=== PATIENT | female | born 1990 | race Caucasian/White ===

== ENCOUNTER → 2023-03-24 12:55 | Outpatient (BNVA) | payer OTHER, SELFPAY | PROVIDERS: PCP Nurse Practitioner Family; Visit Provider Surgery ==

== ENCOUNTER 2023-03-28 08:07 | Outpatient (AMB) | payer OTHER, SELFPAY ==
[2023-03-28 11:49] VITALS: BMI 46.3
--- NOTE | 2023-03-28 11:49 | A.OFFVIS_ITS ---
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 HPI Details Start time: 11.39am, End time: 12.26pm ?I spent 42 minutes speaking with the patient on the phone plus an additional 5 minutes reviewing and updating records for a total of 47 minutes HPI Comments History of Present Illness Details Previous weight loss efforts: Keto diet, exercise Wakes up: 6.30am, Sleeps: 8.30pm Breakfast: 7-8am (muffin, [employer] bar) Lunch: 1.30pm (peanut butter sandwich) Dinner: 6.30pm (rice and meat) Snacks: 4pm (chips) Exercise: has Gym membership Fluids: Coffee/Tea: none, soda: Coke zero or diet coke, juice: none, ETOH: none PFSH Medical History (Updated 03/28/23 @ 12:00 by Milad Lara MD) ADHD Morbid obesity Surgical History (Updated 03/28/23 @ 12:01 by Milad Lara MD) H/O bilateral breast reduction surgery History of appendectomy Assessment & Plan Assessment & Plan (1) Morbid obesity: Code(s): E66.01 - Morbid (severe) obesity due to excess calories Plan: 1.? Plan for lap sleeve gastrectomy. If diaphragmatic or ventral hernias are present at time of surgery, these will be repaired laparoscopically as well. Risks and complications were discussed in detail including possible conversion to an open procedure, anastomotic leak, bleeding requiring transfusion, small bowel obstruction, , DVT and pulmonary embolism, cardiac, or pulmonary complications, as care home complications such as anastomotic ulcer, insufficient weight loss and vitamin deficiencies. I emphasized the importance of close follow-up, adherence to instructions and good communication. 2. Nutritional counseling. Start with 2 protein shakes (HALF scoop EACH in 8oz low fat unsweetened almond milk) at 7am-9am and 10am-12pm, 2 [employer] protein bars at 1pm-3pm and 4pm-6pm, dinner at 7pm (8 forks of protein and 8 forks of salad/vegetables). So you do 2 protein shakes, 2 protein bars and one meal per day. Meal to include lean meat (beef, fish, pork, turkey, chicken), or luxembourger yogurt, or egg whites, or beans with a salad with olive oil and fruits (berries, pears, apples, kiwi). Avoid salt, breads, potatoes, rice, pasta, desserts. 3. Each shake would be drunk slowly, like coffee in a period of 2 hours. 4. Cut each bar in 4 pieces and eat each piece in 30min ?to make each bar last 2 hours. 5. I emphasized the importance of measuring accurately the food portion and measure it when serving the food in plate 6. The meal portions include 8 full-size forks of meat and 8 full-size forks of salad. You always eat the meat portion but you can replace up to 4 forks for salad/vegetables with rice, potatoes or pasta, or a fruit ?if you like. The less you do it the better weight loss will be. 7. One full-size fork is what it can be scooped on the fork without falling aside and not what can be bit with the fork. Use regular forks like those you find in a typical restaurant. 8.? Please send me weight measurements as soon as possible and then once a week. Always include your diet and exercise plan. 9. Start treadmill with an incline of 2.0 and speed of 3.0. Increase incline by 1 every 3 min to a max incline of 8.0, stay 3min at 8.0 and then return to 2.0 and repeat same steps until calorie goal is met. Goal is to burn 2000 calories per week on exercise, which means either 300 calories daily, or 400 calories 5 days per week, or 500 calories 4 days per week, or 650 calories 3 days per week. 10. The best choice would be to purchase a stationary bike at home that can track calories. Let me know if you do so I can give you an exercise plan. 11.?It is important of avoiding and for at least 18 months postoperatively and has been discussed at the infosession. 12. Goal is to lose at least 1.5-2lbs per week 13. Goal to lose 10% of your weight before surgery, which is about 24lbs. Ultimate weight goal: 217lbs before surgery 14. Please follow the diet plan exactly without any change. If you don't like something about the plan or you feel hungry you need to communicate with me so I can help you revise the plan. You should not change the plan yourself. Orders: Orders Insulin Today E66.01 - Morbid (severe) obesity due to excess calories, F41.9 - Anxiety disorder, unspecified, F90.9 - Attention-deficit hyperactivity disorder, unspecified type Hemoglobin A1c Today E66.01 - Morbid (severe) obesity due to excess calories, F41.9 - Anxiety disorder, unspecified, F90.9 - Attention-deficit hyperactivity disorder, unspecified type Lipid Panel Today E66.01 - Morbid (severe) obesity due to excess calories, F41.9 - Anxiety disorder, unspecified, F90.9 - Attention-deficit hyperactivity disorder, unspecified type Comprehensive Met. Panel Today E66.01 - Morbid (severe) obesity due to excess calories, F41.9 - Anxiety disorder, unspecified, F90.9 - Attention-deficit hyperactivity disorder, unspecified type Vitamin B12 and Folate Today E66.01 - Morbid (severe) obesity due to excess calories, F41.9 - Anxiety disorder, unspecified, F90.9 - Attention-deficit hyperactivity disorder, unspecified type Zinc Today E66.01 - Morbid (severe) obesity due to excess calories, F41.9 - Anxiety disorder, unspecified, F90.9 - Attention-deficit hyperactivity disorder, unspecified type Vitamin B1 Today E66.01 - Morbid (severe) obesity due to excess calories, F41.9 - Anxiety disorder, unspecified, F90.9 - Attention-deficit hyperactivity disorder, unspecified type Vitamin A Today E66.01 - Morbid (severe) obesity due to excess calories, F41.9 - Anxiety disorder, unspecified, F90.9 - Attention-deficit hyperactivity disorder, unspecified type US abdomen comp w elastography Today E66.01 - Morbid (severe) obesity due to excess calories, F41.9 - Anxiety disorder, unspecified, F90.9 - Attention- deficit hyperactivity disorder, unspecified type XR chest 2V Today E66.01 - Morbid (severe) obesity due to excess calories, F41.9 - Anxiety disorder, unspecified, F90.9 - Attention-deficit hyperactivity disorder, unspecified type FL upper GI w air Today E66.01 - Morbid (severe) obesity due to excess calories, F41.9 - Anxiety disorder, unspecified, F90.9 - Attention-deficit hyperactivity disorder, unspecified type H Pylori Breath Test Today E66.01 - Morbid (severe) obesity due to excess calories, F41.9 - Anxiety disorder, unspecified, F90.9 - Attention-deficit hyperactivity disorder, unspecified type Complete Blood Count Auto Diff Today E66.01 - Morbid (severe) obesity due to excess calories, F41.9 - Anxiety disorder, unspecified, F90.9 - Attention- deficit hyperactivity disorder, unspecified type IRON PROFILE Today E66.01 - Morbid (severe) obesity due to excess calories, F41.9 - Anxiety disorder, unspecified, F90.9 - Attention-deficit hyperactivity disorder, unspecified type C Reactive Protein Today E66.01 - Morbid (severe) obesity due to excess calories, F41.9 - Anxiety disorder, unspecified, F90.9 - Attention-deficit hyperactivity disorder, unspecified type TSH reflex Free T4 Today E66.01 - Morbid (severe) obesity due to excess calories, F41.9 - Anxiety disorder, unspecified, F90.9 - Attention-deficit hyperactivity disorder, unspecified type Ferritin Today E66.01 - Morbid (severe) obesity due to excess calories, F41.9 - Anxiety disorder, unspecified, F90.9 - Attention-deficit hyperactivity disorder, unspecified type Vitamin D 25-OH Total Today E66.01 - Morbid (severe) obesity due to excess calories, F41.9 - Anxiety disorder, unspecified, F90.9 - Attention-deficit hyperactivity disorder, unspecified type ECG 12 lead EKG Today E66.01 - Morbid (severe) obesity due to excess calories, F41.9 - Anxiety disorder, unspecified, F90.9 - Attention-deficit hyperactivity disorder, unspecified type Referrals Behavioral Health Referral E66.01 - Morbid (severe) obesity due to excess calories, F41.9 - Anxiety disorder, unspecified, F90.9 - Attention-deficit hyperactivity disorder, unspecified type Nutrition/Dietitian Referral E66.01 - Morbid (severe) obesity due to excess calories, F41.9 - Anxiety disorder, unspecified, F90.9 - Attention-deficit hyperactivity disorder, unspecified type Telehealth Telehealth Location of provider rendering services: practice address Location of patient: address on file Patient Identification confirmed using: Name, : Yes Telehealth method: voice only Patient verbally consented to treatment: Yes Patient verbally consented to billing insurance company: Yes Patient informed of any privacy concerns related to visit: Yes Minutes spent on Phone/Video with Pt.: 47 Coding Level of Care Code Tele New Pt Level 4 (10825) Diagnoses Morbid obesity E66.01 Time Spent (min) 47
== END 2023-03-28 12:27 | disposition home or self-care (01) ==
LOC: HO.HBS 08:07
PROVIDERS: PCP Nurse Practitioner Family; Visit Provider Surgery
DX: E66.01 Morbid (severe) obesity due to excess calories (principal); Z68.42 Body mass index [BMI] 45.0-49.9, adult
CPT/HCPCS: 99204

== ENCOUNTER → 2023-03-28 08:07 | Outpatient (BNVA) | payer OTHER, SELFPAY | PROVIDERS: PCP Nurse Practitioner Family; Visit Provider Surgery ==

== ENCOUNTER 2023-04-17 09:50 | Outpatient (REF) | payer OTHER, SELFPAY ==
--- NOTE | ~2023-04-17 | XR_ITS ---
EXAMINATION: XR CHEST CLINICAL INFORMATION: Morbid obesity, severe due to excess calories. COMPARISON: None available. TECHNIQUE: Two views of the chest were obtained. FINDINGS: Lung volumes are low. Mild degenerative changes in the thoracic spine. Heart size is normal. No pleural effusion. No focal consolidation to suggest pneumonia. XR/XR chest 2V IMPRESSION: No evidence of pneumonia.
--- NOTE | 2023-04-17 09:57 | ECG_ITS ---
Test Reason : E66.01 Blood Pressure : / mmHG Vent. Rate : 066 BPM Atrial Rate : 066 BPM P-R Int : 148 ms QRS Dur : 080 ms QT Int : 390 ms P-R-T Axes : 021 022 027 degrees QTc Int : 408 ms Normal sinus rhythm Normal ECG No previous ECGs available Referred By: Miald Lara Electronically Signed By:GIANNA ULLOA
[2023-04-17 10:07] LABS: MANUAL DIFF FLAG NO
[2023-04-17 10:11] LABS: Basophils Percent Auto 0.3 % (0-2); Eosinophils Absolute Auto 0.2 X10*3/uL (0.0-0.4); Eosinophils Percent Auto 2.1 % (0-4); Hematocrit 44.3 % (37.0-47.0); Hemoglobin 14.1 g/dl (12.0-16.0); Imm Gran Abs Auto 0.03 X10*3/uL (0.00-0.03); Imm Gran Pct Auto 0.3 % (0.0-0.4); Lymphocytes Absolute Auto 2.7 X10*3/uL (1.2-4.9); Lymphocytes Percent Auto 28.3 % (20-40); Mean Corpuscular HGB Conc 31.8 g/dl (31.0-35.0); Mean Corpuscular Hemoglobin 28.7 pg (27.0-33.0); Mean Corpuscular Volume 90.2 fL (80.0-98.0); Monocytes Absolute Auto 0.5 X10*3/uL (0.1-1.2); Monocytes Percent Auto 5.2 % (2-11); Neutrophils Absolute Auto 6.1 x10*3/uL (2.0-8.3); Neutrophils Percent Auto 63.8 % (45-73); Platelet Count 293 X10*3/uL (160-400); Red Blood Count 4.91 X10*6/uL (4.20-5.50); Red Cell Distribution Width 13.6 % (11.0-16.0); White Blood Count 9.6 X10*3/uL (4.8-10.8)
[2023-04-17 10:49] LABS: Estimated Average Glucose 94 mg/dL; Hemoglobin A1c % 4.9 % (<6.0)
[2023-04-17 11:34] LABS: Alanine Aminotransferase 14 U/L (0-31); Albumin Level 4.4 g/dL (3.5-5.0); Alkaline Phosphatase 115 U/L (39-117); Anion Gap 13 (12-20); Aspartate Amino Transferase 11 U/L (5-31); Bilirubin Total 0.3 mg/dL (0.0-1.0); Blood Urea Nitrogen 15 mg/dL (9-16); C Reactive Protein 2.54 mg/dL (< or = 0.50); Calcium 9.6 mg/dL (8.4-10.2); Carbon Dioxide 24 mmol/L (22-29); Chloride 107 mmol/L (96-108); Cholesterol 228 mg/dL (<200); Estimated Glomerular Filt Rate > 60; Glucose Random 90 mg/dL (60-115); HDL Cholesterol 36 mg/dL (>40); Iron 55 mcg/dL (30-160); LDL Cholesterol Calculated 160 mg/dL (<100); Percent Iron Saturation 19 % (15-50); Potassium 4.3 mmol/L (3.3-5.1); Sodium 140 mmol/L (135-145); Total Iron Binding Capacity 283 mcg/dL (228-428); Total Protein 7.9 g/dL (6.5-8.0); Triglycerides 160 mg/dL (<150); Unsaturated Iron Binding 228 ug/dL
[2023-04-17 11:49] LABS: Ferritin 53 ng/mL (10-122); Insulin 12 uU/mL (2-29); TSH reflex Free T4 1.22 uIU/mL (0.32-4.0); Vitamin D 25-OH Total 22.9 ng/mL (>30)
[2023-04-17 11:57] LABS: Folate 9.1 ng/mL (> or = 4.0); Vitamin B12 296 pg/mL (200-900)
[2023-04-20 05:44] LABS: Zinc 80 mcg/dL (60-130)
[2023-04-20 18:18] LABS: Vitamin A 37 mcg/dL (38-98)
[2023-04-21 15:38] LABS: Vitamin B1 14 nmol/L (8-30)
== END 2023-04-17 09:51 | disposition home or self-care (01) ==
LOC: HO.XRAY 09:50
PROVIDERS: Visit Provider Surgery
DX: E66.01 Morbid (severe) obesity due to excess calories (principal); F90.9 Attention-deficit hyperactivity disorder, unspecified type; F41.9 Anxiety disorder, unspecified
CPT/HCPCS: 36415; 71046; 80053; 80061; 82306; 82607; 82728; 82746; 83036; 83525; 83540; 84425; 84443; 84590; 84630; 85025; 86140; 93005

== ENCOUNTER → 2023-04-17 09:57 | Outpatient (BNV) | payer OTHER, SELFPAY | PROVIDERS: Visit Provider Internal Medicine | DX: E66.01 Morbid (severe) obesity due to excess calories (principal) | CPT/HCPCS: 93010 ==

== ENCOUNTER 2023-04-21 08:07 | Outpatient (AMB) | payer OTHER, SELFPAY ==
--- NOTE | 2023-04-21 09:02 | MHC.OFFVISWM ---
Intake VS Expanded 04/21/23 11:31 Height 5 ft 0.5 in Weight 245 lb 6 oz BMI 47.1 Body Fat % 63.7 Body Fat Mass 156.4 Fat Free Mass 89.2 Visceral Fat Rating 29 Body Water % 24.9 Body Water Mass 61.1 Basal Metabolic Rate/Score 1,252 Intake Visit Reasons: TV Follow Up SWL - 1ST Allergies aspirin Adverse Reaction (Intermediate, Verified 03/28/23 11:54) Diarrhea HPI TV Follow Up SWL - 1ST HPI Details Start time: 11.08am, End time: 11.38am ?I spent 25 minutes speaking with the patient on the phone plus an additional 5 minutes reviewing and updating records for a total of 30 minutes HPI Comments History of Present Illness Details Is doing 2 [employer] protein shakes (1 scoop in 8oz almond milk), 2 [employer] protein bars and one meal (4 forks of protein and 4 forks of salad or vegetables) Exercise: is doing stationary bike PFSH Medical History (Updated 04/21/23 @ 11:21 by Milad Lara MD) ADHD Morbid obesity Surgical History (Updated 03/28/23 @ 12:01 by Milad Lara MD) H/O bilateral breast reduction surgery History of appendectomy Assessment & Plan Assessment & Plan (1) Morbid obesity: Code(s): E66.01 - Morbid (severe) obesity due to excess calories Plan: 1. Continue same nutritional plan of 2 [employer] protein shakes (1 scoop in 8oz almond milk), 2 [employer] protein bars and one meal (EIGHT forks of protein and EIGHT forks of salad or vegetables) 2. The portion of your meal is 8 forks of protein and 8 forks of salad/vegetables or 4 forks of salad and 4 forks or rice, potatoes or pasta. 3. Exercise: continue the stationary bike daily and track the calories from the smart watch and burn 400 calories per work-out 4. Continue to send me weight measurements weekly on Mondays Medications: New vitamin A palmitate 10,000 units PO DAILY 30 caps 0RF E50.9 - Vitamin A deficiency, unspecified Telehealth Telehealth Location of provider rendering services: practice address Location of patient: address on file Patient Identification confirmed using: Name, : Yes Telehealth method: voice only Patient verbally consented to treatment: Yes Patient verbally consented to billing insurance company: Yes Patient informed of any privacy concerns related to visit: Yes Minutes spent on Phone/Video with Pt.: 30 Coding Level of Care Code Tele Est Pt Level 4 (86200) Diagnoses Morbid obesity E66.01 Time Spent (min) 30
[2023-04-21 11:31] VITALS: BMI 47.1
== END 2023-04-21 11:39 | disposition home or self-care (01) ==
LOC: HO.HBS 08:07
PROVIDERS: PCP Nurse Practitioner Family; Visit Provider Surgery
DX: E66.01 Morbid (severe) obesity due to excess calories (principal)
CPT/HCPCS: 99214

== ENCOUNTER → 2023-04-21 08:07 | Outpatient (BNVA) | payer OTHER, SELFPAY | PROVIDERS: PCP Nurse Practitioner Family; Visit Provider Surgery ==

== ENCOUNTER 2023-04-26 09:33 | Day surgery (SDC) | payer OTHER, SELFPAY ==
--- NOTE | 2023-04-24 12:25 | HO.ANESPROP2 ---
Documented by User: Karina Brady NP 04/24/23 12:26 HPI - Anesthesia Eval Consult details Narrative: 32yo F for Upper Endoscopy PMFSH Active Problems Active Problems: All Active Problems (Updated 04/21/23 @ 11:21 by Milad Lara MD) Vitamin A deficiency (Acute) Vitamin B12 deficiency (Acute) Vitamin D deficiency (Acute) Anxiety (Acute) ADHD (Acute) Morbid obesity (Acute) Past Medical History Medical History ADHD Morbid obesity Surgical History Surgical History H/O bilateral breast reduction surgery History of appendectomy Social History Social History Patient Tobacco Use Status: Former Tobacco user Quit Date: 1.5 mos ago Meds Allergies Allergy/AdvReac Type Severity Reaction Status Date / Time aspirin AdvReac Intermediate Diarrhea Verified 04/26/23 12:53 Home Medications Medication Instructions Recorded Confirmed Last Taken Type dextroamphetamine-amphetamine ER 1 cap PO QAM 03/24/23 04/26/23 04/17/23 History 30 mg 24hr capsule,extend release (Adderall XR) Exam Pertinent Lab Results Pertinent Lab Results: Laboratory Tests 04/17/23 10:05 WBC 9.6 Hgb 14.1 Hct 44.3 Plt Count 293 Sodium 140 Potassium 4.3 Chloride 107 Carbon Dioxide 24 BUN 15 Creatinine 0.72 Narrative Narrative: EKG Vent. Rate : 066 BPM Atrial Rate : 066 BPM P-R Int : 148 ms QRS Dur : 080 ms QT Int : 390 ms P-R-T Axes : 021 022 027 degrees QTc Int : 408 ms Normal sinus rhythm Normal ECG No previous ECGs available Assessment and Plan Assessment Anesthesia Assessment: Chart Reviewed Documented by User: Wanda Husain MD 04/26/23 14:51 PMFSH Active Problems Active Problems: All Active Problems (Updated 04/26/23 @ 12:57 by Wanda Husain MD) Vitamin A deficiency (Acute) Vitamin B12 deficiency (Acute) Vitamin D deficiency (Acute) Anxiety (Acute) ADHD (Acute) Morbid obesity (Acute) BMI 48 Former smoker. Quit 1.5 months ago Past Medical History Medical History ADHD Morbid obesity Family History Family history of problems with anesthesia: No Surgical History Surgical History H/O bilateral breast reduction surgery History of appendectomy History of Problems with Anesthesia: No Social History Social History Patient Tobacco Use Status: Former Tobacco user Quit Date: 1.5 mos ago Meds Allergies Allergy/AdvReac Type Severity Reaction Status Date / Time aspirin AdvReac Intermediate Diarrhea Verified 04/26/23 12:53 Home Medications Medication Instructions Recorded Confirmed Last Taken Type dextroamphetamine-amphetamine ER 1 cap PO QAM 03/24/23 04/26/23 04/17/23 History 30 mg 24hr capsule,extend release (Adderall XR) Exam Height,Weight and Vital Signs: Height 5 ft Weight 111.584 kg Vital Signs Temp Pulse Resp BP Pulse Ox O2 Del Method 98.1 F 71 16 97/49 L 98 Room Air 04/26/23 13:21 04/26/23 13:21 04/26/23 13:21 04/26/23 13:21 04/26/23 13:21 04/26/23 13:21 Pertinent Lab Results Pertinent Lab Results: Laboratory Tests 04/17/23 10:05 WBC 9.6 Hgb 14.1 Hct 44.3 Plt Count 293 Sodium 140 Potassium 4.3 Chloride 107 Carbon Dioxide 24 BUN 15 Creatinine 0.72 Lab Results 04/26/23 Range/Units 12:55 Urine Test NEGATIVE (NEGATIVE) Airway Mallampati Class: II TM Dist: >3cm Neck ROM: Full Loose/Missing/Broken Teeth: No (Denies broken, loose, missing teeth) Heart: RRR Lungs: CTAB Assessment and Plan Assessment Anesthesia Assessment: Anesthesia Plan Discussed and Chart Reviewed Final Anesthetic Review Family History of Problems with Anesthesia: No History of Problems with Anesthesia: No NPO: Yes ASA Class: III Final Preanesthetic Review: No Changes in Pt Med Stat, Meds/Allgs Chart Reviewed, Consent Obtained/Reviewed and Anes Risks/Benef Reviewed Patient Risk: Intermediate Procedure Risk: Low Assessment/Block/Sedation in SS: Assess/Block/Sedation-SS Anesthetic Plan Anesthetic Plan: GA, MAC: and TIVA Disposition: Standard PACU
[2023-04-26] VITALS (7 sets, daily range): BP systolic 97–116; BP diastolic 47–80; PULSE 70–88; RESP 14–16; TEMP 36.1–36.7; O2SAT 94–100; BMI 48.0
[2023-04-26 13:04] LABS: UPreg QC Valid YES; Urine Pregnancy NEGATIVE (NEGATIVE)
--- NOTE | 2023-04-26 13:07 | MHC.SHP ---
Pre-Procedural Eval Section A - 24 Hr Update-Section A only Date of Service: 04/26/23 The patient is an INPATIENT: No The patient has been examined within 24 hours of the surgical procedure. The History & Physical has been completed within 30 days and I have reviewed it.: No Section B - Complete if H&P > 30 days Chief Complaint: Morbid (severe) obesity due to excess calories Relevant Family History (Specify if Yes): No Relevant Social History: None Present Medications: None Medical History: No relevant PMH History of Previous Operations: No relevant previous surgery Allergies: Allergies Allergy/AdvReac Type Severity Reaction Status Date / Time aspirin AdvReac Intermediate Diarrhea Verified 04/26/23 12:53 Review of Systems Sugical H&P ROS: Negative: Constitution, Cardiovascular, Respiratory, Neurological, Psychiatric, Hem-Onc, Allergic/Immunologic, Gastrointestinal, Genitourinary, Musculoskeletal, Integumentary, Endocrine and Eyes/Ears/Nose/Throat Exam Surgical H&P Exam: Normal: HEENT, Normal: Heart, Normal: Lungs, Normal: Extremities, Normal: Abdomen, Normal: Skin and Normal: Neurological Plan Diagnosis/Plan: Unchanged (Plan for EGD. Risks of bleeding and perforation were discussed with the patient and she is in agreement with the plan.) I have reviewed the history and physical and performed a pertinent physical examination on my patient. No changes have occurred unless specified. Time Spent With Patient Time: Total time managing care of this patient today ____ minutes.
--- NOTE | 2023-04-26 13:09 | P.BOP_ITS ---
Brief Operative Note Date of Service: 04/26/23 Pre-op diagnosis: Morbid obesity Post-op diagnosis: same Procedure: PROCEDURE DATE: 04/26/2023 PREOPERATIVE DIAGNOSIS: Morbid obesity POSTOPERATIVE DIAGNOSIS: ?Same as above. 1) Normal endoscopy PROCEDURE: [id number]-ogmyioatcxyf with biopsies Surgeon: Lukas Lara M.D.. Ph.D. Manager Environmental: None ? Anesthesia: IV sedation Estimated blood loss: ?Minimal FINDINGS AND PROCEDURE: ? OPERATIVE INDICATIONS: ?The patient is a 33 year old female known to me who is interested in bariatric surgery. I recommended an upper endoscopy to evaluate the stomach's anatomy in preparation for bariatric surgery. Risks and complications of the surgery were discussed with the patient in advance particularly the possibility of perforation or bleeding that may require surgical intervention. The patient understood the risks and was in agreement with the plan. ? PROCEDURE: After informed consent was obtained by the patient, the patient was ?transferred to the Operating Room and was placed in the supine position.? After successful induction of IV sedation, a mouth block was inserted and the patient was placed in the left lateral decubitus position. An upper endoscopy was performed next, the oropharynx and esophagus appeared within the normal limits. There was no hiatal hernia. The z-line was smooth. Two biopsies were obtained from the distal esophagus 2-3 cm proximal to the GE junction and two additional biopsies from the GE junction. The stomach was entered and it appeared to be of normal size. There was no gastritis. There was no stricture or ulcer. Biopsies were obtained from the proximal sleeve as well as the distal antrum. No significant bleeding was noted from any of the biopsy sites. The scope was then advanced into the duodenum which appeared to be normal as well. At that point the duodenum ?and the sleeve were decompressed and the scope was withdrawn from the patient's mouth. The patient extubated and was transferred in stable condition to the Recovery Room for further care. I was present and performed all steps of the procedure. There were no residents to assist with this case. López Lara M.D., Ph.D. Surgeon: Milad Lara MD Anesthesia: MAC Was an Manager Environmental used for this Procedure?: No Estimated blood loss (mL): 0 IV fluids (mL): 400 Urine output (mL): 0 (No Gloria to record output) Pathology: other (1) antrum x1, 2) gastric fundus x1, 3) GE junction x2, 4) distal esophagus x2)
[2023-04-26] MEDS: Lactated Ringers 1,000 ML 80 ML IVCONT (13:50)
== END 2023-04-26 15:38 | disposition home or self-care (01) ==
PROVIDERS: Nurse Practitioner; PCP Nurse Practitioner Family; Visit Provider Surgery
PROC: 0DJ08ZZ Inspection of Upper Intestinal Tract, Via Natural or Artificial Opening Endoscopic (ICD-10-PCS; CPT 43235; principal; 2023-04-26 13:30)
DX: E66.01 Morbid (severe) obesity due to excess calories (principal); Z68.42 Body mass index [BMI] 45.0-49.9, adult; E50.9 Vitamin A deficiency, unspecified; F90.9 Attention-deficit hyperactivity disorder, unspecified type; Z88.8 Allergy status to other drugs, medicaments and biological substances; Z98.890 Other specified postprocedural states
CPT/HCPCS: 43239; 81025; 88305; 88313; 88342; J2250; J2704

== ENCOUNTER → 2023-04-26 09:33 | Outpatient (BNV) | payer OTHER, SELFPAY | PROVIDERS: PCP Nurse Practitioner Family; Visit Provider Surgery | DX: E66.01 Morbid (severe) obesity due to excess calories (principal); Z68.42 Body mass index [BMI] 45.0-49.9, adult | CPT/HCPCS: 43239 ==

== ENCOUNTER 2023-04-27 09:39 | Outpatient (REF) | payer OTHER, SELFPAY ==
--- NOTE | ~2023-04-27 | US_ITS ---
EXAMINATION: US COMPLETE ABDOMEN WITH LIVER ELASTOGRAPHY CLINICAL INFORMATION: Obesity. COMPARISON: None available. TECHNIQUE: Real-time imaging of the abdominal viscera. Noninvasive ultrasound liver fibrosis assessment is performed using Awilda ElastPQ point quantification shear wave elastography (2D-SWE) with a C5-2 MHz transducer. Multiple elastography samples are obtained. FINDINGS: PANCREAS: Head and body appear unremarkable. Tail not visualized. ABDOMINAL AORTA: The proximal, middle, and distal aortic segments appear unremarkable in caliber. INFERIOR VENA CAVA: Visualized portions appear unremarkable. LIVER: The liver demonstrates normal size, contour and echogenicity. No focal lesion or intrahepatic biliary duct dilatation. The right lobe measures 15.5 cm in length. The left lobe measures 7.2 cm in length. Portal flow is towards the liver (hepatopetal). Shear wave liver elastography median stiffness is 1.33 m/s (reference: normal median stiffness is 1.3 m/s or less). IQR/median stiffness to assess sampling precision is 0.27 (reference: good quality data set is IQR/median stiffness of 0.15 or less). GALLBLADDER: The gallbladder is physiologically distended without evidence of stones, sludge, polyps, wall thickening or pericholecystic fluid. COMMON BILE DUCT: Normal in caliber measuring 0.4 cm in diameter. RIGHT KIDNEY: No hydronephrosis. No renal calculi or focal parenchymal lesion identified. The kidney measures 11.9 cm in maximum dimension. LEFT KIDNEY: No hydronephrosis. No renal calculi or focal parenchymal lesion identified. The kidney measures 11.7 cm in maximum dimension. SPLEEN: The spleen measures 12.0 cm in maximum dimension. FREE FLUID: None. US/US abdomen comp w elastography IMPRESSION: Liver elastography: Although measurements appear to rule out compensated advanced chronic liver disease, there is statistical variability of the sampling which decreases accuracy. Spleen upper normal in size. REFERENCE: Society of Radiologists in Ultrasound Liver Stiffness Thresholds (2020): LIVER STIFFNESS THRESHOLDS: *Liver Stiffness equal or less than 1.3 m/s: High probability of being normal. *Liver Stiffness less than 1.7 m/s: In the absence of other known clinical signs, rules out compensated advanced chronic liver disease. *Liver Stiffness 1.7-2.1 m/s: Suggestive of compensated advanced chronic liver disease but need further test for confirmation. *Liver Stiffness over 2.1 m/s: Rules in compensated advanced chronic liver disease. *Liver Stiffness over 2.4 m/s: Suggestive of clinically significant portal hypertension. QUALITY OF DATA SET: *IQR/Median value equal or less than 0.15 implies a quality data set. *IQR/Median value over 0.15 implies a poor quality data set. SIGNIFICANT CHANGE FROM PRIOR EXAM: Significant change if liver stiffness measurement is 10% or greater from prior exam. OTHER CONSIDERATIONS: The stage of liver fibrosis may be overestimated in the setting of acute hepatitis, liver inflammation, elevated liver function tests, hepatic vascular congestion, obstructive cholestasis, non-fasting state, and infiltrative diseases such as amyloidosis and lymphoma. In some patients with NAFLD, the liver stiffness thresholds for compensated advanced chronic liver disease may be lower. In causes other than viral hepatitis and NAFLD, liver stiffness thresholds are not well established.
== END 2023-04-27 09:40 | disposition home or self-care (01) ==
LOC: HO.US 09:39
PROVIDERS: PCP Nurse Practitioner Family; Visit Provider Surgery
DX: E66.01 Morbid (severe) obesity due to excess calories (principal); F90.9 Attention-deficit hyperactivity disorder, unspecified type; F41.9 Anxiety disorder, unspecified; Z59.01 Sheltered homelessness
CPT/HCPCS: 76700; 76981; 97802

== ENCOUNTER 2023-04-27 11:20 | Outpatient (AMB) | payer OTHER, SELFPAY ==
--- NOTE | 2023-04-27 11:10 | A.OFFVIS_ITS ---
Intake Intake Visit Reasons: VIDEO Initial Nutrition SWL Allergies aspirin Adverse Reaction (Intermediate, Verified 04/26/23 12:53) Diarrhea HPI Nutrition Presentation Details Lives in a retirement - living here since november - is on a list for housing. she does not work. she only has a microwave Reason for consult elevated BMI Unstable SDH Reports housing, use of SNAP (3 people ; doesn't know about HIP ) and retirement Diet Assmnt Details pt states she is following surgeons nutrition plan. 2 [employer] shakes and using [employer] bars. needs no cook meals, can microwave, so gave ideas for microwave meals. Doesn't have a gym membership SWL online classes: completed, reviewed. Dietary counseling reduction Who buys your food self Who prepares/cooks your food self Meal frequency regular: lunch and dinner Diagnosis Nutrition problem #1 overweight/obesity As related to (etiology) #1 excess energy intake and physical inactivity As evidenced by (sign/symptom) #1 high BMI Monitoring/Goals Nutrition problem monitoring total energy intake, level of knowledge/skill, total PRO intake, total CHO intake and weight Learning/Education Readiness to learn fair Educational materials provided Yes Most Recent Diabetes Results: Cholesterol 228 mg/dL (<200) H 04/17/23 HDL Cholesterol 36 mg/dL (>40) L 04/17/23 Triglycerides 160 mg/dL (<150) H 04/17/23 Creatinine 0.72 mg/dL (0.5-1.4) 04/17/23 Blood Urea Nitrogen 15 mg/dL (9-16) 04/17/23 Sodium 140 mmol/L (135-145) 04/17/23 Potassium 4.3 mmol/L (3.3-5.1) 04/17/23 Chloride 107 mmol/L (96-108) 04/17/23 Carbon Dioxide 24 mmol/L (22-29) 04/17/23 Calcium 9.6 mg/dL (8.4-10.2) 04/17/23 AST 11 U/L (5-31) 04/17/23 ALT 14 U/L (0-31) 04/17/23 Total Protein 7.9 g/dL (6.5-8.0) 04/17/23 Albumin 4.4 g/dL (3.5-5.0) 04/17/23 [facility] Medical History ADHD Morbid obesity Surgical History H/O bilateral breast reduction surgery History of appendectomy Social History Patient Tobacco Use Status: Former Tobacco user Quit Date: 1.5 mos ago Assessment & Plan Assessment & Plan (1) Morbid obesity: Code(s): E66.01 - Morbid (severe) obesity due to excess calories Plan vocalized some post op nutritional concerns today but pt states no concerns of her own. she has no questions about post op nutrition. surgeon aware of pts living situation. pt is cleared when ready. Telehealth Telehealth Location of provider rendering services: practice address Location of patient: address on file Patient Identification confirmed using: Name, : Yes Telehealth method: video Patient verbally consented to treatment: Yes Patient verbally consented to billing insurance company: Yes Patient informed of any privacy concerns related to visit: Yes Minutes spent on Phone/Video with Pt.: 30 Coding Level of Care Code Nutr Indiv Intake (53159) Diagnoses Morbid obesity E66.01 Time Spent (min) 30
== END 2023-04-27 11:36 | disposition home or self-care (01) ==
LOC: HO.HBS 11:21
PROVIDERS: PCP Nurse Practitioner Family; Visit Provider Dietitian, Registered
DX: E66.01 Morbid (severe) obesity due to excess calories (principal)

== ENCOUNTER 2023-05-01 11:07 | Outpatient (AMB) | payer OTHER, SELFPAY ==
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
== END 2023-05-01 11:15 ==
PROVIDERS: PCP Nurse Practitioner Family; Visit Provider Counselor Mental Health
DX: F90.9 Attention-deficit hyperactivity disorder, unspecified type (principal); F41.8 Other specified anxiety disorders; E66.01 Morbid (severe) obesity due to excess calories
CPT/HCPCS: 90791

== ENCOUNTER → 2023-05-01 11:07 | Outpatient (BNVA) | payer OTHER, SELFPAY | PROVIDERS: PCP Nurse Practitioner Family; Visit Provider Counselor Mental Health ==

== ENCOUNTER 2023-05-22 07:59 | Outpatient (AMB) | payer OTHER, SELFPAY ==
--- NOTE | 2023-05-22 09:07 | A.OFFVIS_ITS ---
Intake VS Expanded 05/22/23 09:19 Height 5 ft Weight 243 lb 6 oz BMI 47.5 Body Fat % 63.2 Body Fat Mass 153.9 Fat Free Mass 89.6 Visceral Fat Rating 29 Body Water % 25.2 Body Water Mass 61.4 Basal Metabolic Rate/Score 1,244 Intake Visit Reasons: TV Follow Up SWL Allergies aspirin Adverse Reaction (Intermediate, Verified 04/26/23 12:53) Diarrhea HPI TV Follow Up SWL HPI Details Start time: 9.05am, End time: 9.25am ?I spent 15 minutes speaking with the patient on the phone plus an additional 5 minutes reviewing and updating records for a total of 20 minutes HPI Comments History of Present Illness Details Is doing 2 Orgain protein shakes (1 scoop each in 8oz water), two [employer] protein bars and one meal (8 forks of protein and 8 forks of salad or vegetables) Exercise: none last 2 weeks because her children were ill and was in the hospit [facility] Medical History ADHD Morbid obesity Surgical History H/O bilateral breast reduction surgery History of appendectomy Social History Patient Tobacco Use Status: Former Tobacco user Quit Date: 1.5 mos ago Assessment & Plan Assessment & Plan (1) Morbid obesity: Code(s): E66.01 - Morbid (severe) obesity due to excess calories Plan: 1. Continue same nutritional plan of in protein shakes (1 scoop each in 8oz water), two [employer] protein bars and one meal (8 forks of protein and 8 forks of salad or vegetables) 2. Do the stationary bike daily for 300 calories. Best time would be when your children are sleeping. Goal is to burn 2000 calories per week on the bike 3. Send me weight measurements weekly on Mondays Telehealth Telehealth Location of provider rendering services: practice address Location of patient: address on file Patient Identification confirmed using: Name, : Yes Telehealth method: voice only Patient verbally consented to treatment: Yes Patient verbally consented to billing insurance company: Yes Patient informed of any privacy concerns related to visit: Yes Minutes spent on Phone/Video with Pt.: 20 Coding Level of Care Code Tele Est Pt Level 3 (18260) Diagnoses Morbid obesity E66.01 Time Spent (min) 20
[2023-05-22 09:19] VITALS: BMI 47.5
== END 2023-05-22 09:26 | disposition home or self-care (01) ==
PROVIDERS: PCP Nurse Practitioner Family; Visit Provider Surgery
DX: E66.01 Morbid (severe) obesity due to excess calories (principal)
CPT/HCPCS: 99213

== ENCOUNTER → 2023-05-22 07:59 | Outpatient (BNVA) | payer OTHER, SELFPAY | PROVIDERS: PCP Nurse Practitioner Family; Visit Provider Surgery ==